=== PATIENT | female | born 1950 | race Caucasian/White ===

== ENCOUNTER 2016-10-10 09:56 | Day surgery (SDC) ==
[2014-12-13 09:26] VITALS: BMI 25.8
[2016-10-10] MEDS ORDERED: DIPRIVAN 20 ML VIAL IVP ONE (10:24)
[2016-10-10] MEDS ORDERED: VERSED ONE (10:24)
[2016-10-10 11:46] VITALS: BP 110/66; TEMP 98.2
--- NOTE | 2016-10-11 09:53 | OP ---
PROCEDURE: COLONOSCOPY WITH SNARE POLYPECTOMY. ENDOSCOPIST: Makenna LOPEZ M.D. INDICATION: HISTORY OF POLYPS. INSTRUMENT: [employer]-190. MEDICATION: PER ANESTHESIA. PROCEDURE: The patient was positioned for colonoscopy. The digital rectal exam was negative. The colonoscope was inserted through the anus and advanced under direct vision to the cecum. The cecum was identified using the ileocecal valve and the appendiceal orifice as landmarks. The scope was slowly withdrawn through an adequately prepped colon. Two (2) small polyps at the hepatic flexure removed using cold snare polypectomy. Diverticuli in the left colon. Retroflex exam was otherwise normal. Withdrawal time 10 minutes and 50 seconds. PLAN: 1. Review pathology with anticipated repeat colonoscopy in five years. CC: DR. SHRUTHI VALENZUELA
== END 2016-10-10 12:00 | disposition home or self-care (01) ==
LOC: SURG 09:56
PROVIDERS: ATTEND Internal Medicine Gastroenterology
DX: Z09 Encounter for follow-up examination after completed treatment for conditions other than malignant neoplasm (principal); Z86.010 Personal history of colon polyps; D12.3 Benign neoplasm of transverse colon; K57.30 Diverticulosis of large intestine without perforation or abscess without bleeding

== ENCOUNTER 2018-04-30 08:18 | Day surgery (SDC) ==
[2014-12-13 09:26] VITALS: BMI 25.8
[2018-04-30] MEDS ORDERED: LIDOCAINE 1% 20 ML MDV ID STA (09:21)
[2018-04-30] MEDS ORDERED: DIPRIVAN 20 ML VIAL IVP ONE (09:30)
[2018-04-30] MEDS ORDERED: VERSED ONE (09:30)
[2018-04-30] MEDS ORDERED: LIDOCAINE HCL 2% LUER-JET ONE (09:30)
[2018-04-30 15:40] VITALS: BP 121/78
--- NOTE | 2018-05-01 08:36 | OP ---
PROCEDURE: EGD (ESOPHAGOGASTRODUODENOSCOPY) . ENDOSCOPIST: Makenna LOPEZ M.D. INDICATION: REFLUX INSTRUMENT: [employer]-190. MEDICATION: PER ANESTHESIA. PROCEDURE: The patient was positioned for endoscopy. The oropharynx was sprayed with Cetacaine spray and the endoscope was advanced through the bite block into the esophagus and from there advanced to the duodenum. The duodenum was normal. The pylorus was patent. The antrum is normal. Retroflex exam reveals a normal cardia. The Z-line is regular at 40cm. There is no evidence for inflammatory change in the distal esophagus. She tolerated the procedure without immediate complication. PLAN: 1. Repeat as needed. 2. She can consider changing to H2 blockers instead of a Proton pump inhibitor perhaps twice a day H2 Brayden would be just as effective. We also discussed her complaint of excess gas and talked about limiting her carbohydrates. BIANCA
== END 2018-04-30 10:45 | disposition home or self-care (01) ==
LOC: SURG 08:18
PROVIDERS: ATTEND Internal Medicine Gastroenterology
DX: K21.9 Gastro-esophageal reflux disease without esophagitis (principal)